=== PATIENT | male | born 1975 | race Caucasian/White ===

== ENCOUNTER 2018-11-18 11:04 | Emergency (ER) | payer OTHER ==
[2018-11-18 12:03] LABS: ADD MAN DIFF? NO
[2018-11-18 12:07] LABS: BASOPHIL # 0.1 10^3/ul (0.0-0.1); BASOPHILS % 0.5 % (0.0-2.0); EOSINOPHILS # 0.3 10^3/ul (0.0-0.5); EOSINOPHILS % 2.7 % (0.0-7.0); HEMATOCRIT 43.2 % (42.0-52.0); HEMOGLOBIN 14.2 g/dl (14.0-18.0); LYMPHOCYTES # 3.3 10^3/ul (0.8-2.9); LYMPHOCYTES % 32.5 % (15.0-51.0); MEAN CORPUSCULAR HEMOGLOBIN 30.3 pg (29.0-33.0); MEAN CORPUSCULAR HGB CONC 32.9 g/dl (32.0-37.0); MEAN CORPUSCULAR VOLUME 92.1 fl (82.0-101.0); MEAN PLATELET VOLUME 9.8 fl (7.4-10.4); MONOCYTE # 0.7 10^3/ul (0.3-0.9); MONOCYTES % 6.6 % (0.0-11.0); NEUTROPHIL # 5.8 10^3/ul (1.6-7.5); NEUTROPHILS % 57.4 % (39.0-77.0); PLATELET COUNT 220 10^3/UL (140-415); RED BLOOD COUNT 4.69 10^6/ul (4.70-6.10); RED CELL DISTRIBUTION WIDTH 13.2 % (11.5-14.5)
[2018-11-18 12:24] LABS: ALANINE AMINOTRANSFERASE 38 IU/L (13-69); ALBUMIN 4.2 g/dl (3.3-4.9); ALBUMIN/GLOBULIN RATIO 1.35; ALKALINE PHOSPHATASE 61 IU/L (42-121); ANION GAP 8 (5-13); ASPARTATE AMINO TRANSFERASE 25 IU/L (15-46); BILIRUBIN,INDIRECT 0.4 mg/dl (0-1.1); BILIRUBIN,TOTAL 0.4 mg/dl (0.2-1.3); BLOOD UREA NITROGEN 13 mg/dl (7-20); CALCIUM 8.8 mg/dl (8.4-10.2); CARBON DIOXIDE 26 mmol/L (21-31); CHLORIDE 110 mmol/L (97-110); CREATININE 0.97 mg/dl (0.61-1.24); Estimated GFR > 60 mL/min (>60); GLUCOSE 87 mg/dl (70-220); LIPASE 85 U/L (23-300); SODIUM 144 mmol/L (135-144); TOTAL PROTEIN 7.3 g/dl (6.1-8.1)
[2018-11-18 12:35] LABS: TROPONIN-I < 0.012 ng/ml (0.000-0.120)
[2018-11-18] MEDS: KETOROLAC 30 MG INJ IV (12:51)
[2018-11-18 13:03] LABS: URINE BLOOD (Dip) POC Trace-intact (NEGATIVE); URINE GLUCOSE (Dip) POC Negative (NEGATIVE); URINE KETONES (Dip) POC Negative (NEGATIVE); URINE LEUKOCYTE EST (Dip) POC Negative (NEGATIVE); URINE NITRITE (Dip) POC Negative (NEGATIVE); URINE TOTAL PROTEIN POC Trace (NEGATIVE)
[2018-11-18 15:34] LABS: TROPONIN-I < 0.012 ng/ml (0.000-0.120)
== END 2018-11-18 16:37 | disposition home or self-care (01) ==
LOC: E/R 16:37
DX: K80.50 Calculus of bile duct without cholangitis or cholecystitis without obstruction (principal); R07.9 Chest pain, unspecified; Z91.010 Allergy to peanuts
CPT/HCPCS: 36415; 71045; 76705; 80053; 81003; 83690; 84484; 85025; 93005; 96374; 99285-25